=== PATIENT | female | born 1995 | race Caucasian/White ===

== ENCOUNTER 2021-04-23 17:23 | Emergency (ER) | payer OTHER, SELFPAY ==
[~2021-04-23] VITALS: Ht 152.4 cm; Wt 53.6 kg
[2021-04-23 17:34] VITALS: BP 104/77
[2021-04-23 18:33] LABS: COVID AG,FIA SOURCE NASAL SWAB
== END 2021-04-23 20:00 | disposition home or self-care (01) ==
LOC: EMS 17:38
DX: U07.1 COVID-19 (principal)
CPT/HCPCS: 87426; 99283; U0003